=== PATIENT | female | born 1990 | race Caucasian/White ===

== ENCOUNTER 2017-09-20 21:36 | Emergency (ER) | payer OTHER ==
[~2017-09-20] VITALS: Ht 167.6 cm; Wt 54.4 kg
[2017-09-21 00:02] VITALS: BP 133/74
== END 2017-09-21 00:02 | disposition home or self-care (01) ==
LOC: ED 21:36
DX: J06.9 Acute upper respiratory infection, unspecified (principal); Z88.2 Allergy status to sulfonamides
CPT/HCPCS: J7613

== ENCOUNTER 2018-02-20 16:42 | Emergency (ER) | payer OTHER ==
[~2018-02-20] VITALS: Ht 165.1 cm; Wt 55.9 kg
[2018-02-20 16:52] VITALS: BP 117/71; Ht 165.1 cm; Wt 55.9 kg
== END 2018-02-20 17:58 | disposition home or self-care (01) ==
LOC: ED 16:42
DX: L02.213 Cutaneous abscess of chest wall (principal); Z88.2 Allergy status to sulfonamides; F17.210 Nicotine dependence, cigarettes, uncomplicated
CPT/HCPCS: J2001

== ENCOUNTER 2018-02-23 15:48 | Emergency (ER) | payer OTHER ==
[~2018-02-23] VITALS: Ht 167.6 cm; Wt 55.3 kg
[2018-02-23 15:55] VITALS: BP 108/70; Ht 167.6 cm; Wt 55.3 kg
== END 2018-02-23 17:17 | disposition home or self-care (01) ==
LOC: ED 15:48
DX: L02.213 Cutaneous abscess of chest wall (principal); Z88.2 Allergy status to sulfonamides

== ENCOUNTER 2018-05-25 14:37 | Emergency (ER) | payer OTHER ==
[~2018-05-25] VITALS: Ht 167.6 cm; Wt 58.5 kg
[2018-05-25 14:46] VITALS: Ht 167.6 cm; Wt 58.5 kg
[2018-05-25 15:58] LABS: BASOPHIL % 1.7 % (0-2); PLATELET COUNT 186 x10^3mcL (130-400); RED CELL DISTRIBUTION WIDTH 13.5 % (11.5-14.5)
[2018-05-25 16:07] LABS: CALCIUM 9.5 mg/dL (8.5-10.1); CARBON DIOXIDE 28.1 mmol/L (21-32); CHLORIDE SERUM 104 mmol/L (98-107); CREATININE SERUM 0.5 mg/dL (0.6-1.0); GFR1 > 60 mL/min; GLUCOSE SERUM 87 mg/dL (74-106); SODIUM SERUM 138 mmol/L (136-145)
[2018-05-25 16:12] LABS: ALBUMIN 3.3 g/dL (3.4-5.0); ALKALINE PHOSPHATASE 43 U/L (46-116); ALT/SGPT 21 U/L (14-59); AST/SGOT 13 U/L (15-37); BILIRUBIN TOTAL 0.15 mg/dL (0.20-1.00); TOTAL PROTEIN, SERUM 7.2 g/dL (6.4-8.2)
[2018-05-25 17:40] VITALS: BP 118/75
== END 2018-05-25 17:40 | disposition home or self-care (01) ==
LOC: ED 14:37
PROVIDERS: Emergency Medicine
DX: O26.891 Other specified pregnancy related conditions, first trimester (principal); E86.0 Dehydration; M54.5 Low back pain; R10.2 Pelvic and perineal pain; Z88.2 Allergy status to sulfonamides; Z3A.13 13 weeks gestation of pregnancy
CPT/HCPCS: J7030

== ENCOUNTER 2018-08-15 23:50 | Emergency (ER) | payer OTHER ==
[~2018-08-15] VITALS: Ht 165.1 cm; Wt 62.6 kg
[2018-08-15 23:56] VITALS: Ht 165.1 cm; Wt 62.6 kg
[2018-08-16 00:55] VITALS: BP 125/75
== END 2018-08-16 00:55 | disposition home or self-care (01) ==
LOC: ED 23:50
DX: O26.892 Other specified pregnancy related conditions, second trimester (principal); R05 Cough; K42.9 Umbilical hernia without obstruction or gangrene; F17.210 Nicotine dependence, cigarettes, uncomplicated; Q96.9 Turner's syndrome, unspecified; Z3A.25 25 weeks gestation of pregnancy
CPT/HCPCS: 99406

== ENCOUNTER 2019-09-24 01:51 | Emergency (ER) | payer OTHER ==
[~2019-09-24] VITALS: Ht 165.1 cm; Wt 56.4 kg
[2019-09-24 02:03] VITALS: Ht 165.1 cm; Wt 56.4 kg
[2019-09-24 03:45] VITALS: BP 107/72
== END 2019-09-24 03:45 | disposition home or self-care (01) ==
LOC: ED 01:51
DX: L02.01 Cutaneous abscess of face (principal); Z88.2 Allergy status to sulfonamides
CPT/HCPCS: J0696